=== PATIENT | male | born 1965 | race Asian ===

== ENCOUNTER 2020-03-06 10:22 | Emergency (ER) | payer OTHER | END 2020-03-06 11:17 | disposition home or self-care (01) | LOC: JVIRT 10:22 | DX: Z03.818 Encounter for observation for suspected exposure to other biological agents ruled out (principal) | CPT/HCPCS: C9803; G2012-GT; Q3014-GT; U0003 ==

== ENCOUNTER 2020-03-26 13:10 | Emergency (ER) | payer OTHER | END 2020-03-26 14:05 | disposition home or self-care (01) | LOC: JVIRT 13:10 | DX: Z03.818 Encounter for observation for suspected exposure to other biological agents ruled out (principal) | CPT/HCPCS: C9803; Q3014-GT; U0003 ==

== ENCOUNTER 2021-02-04 17:39 | Emergency (ER) | payer OTHER ==
[2021-02-04 19:31] VITALS: BP 159/94; PULSE 74; TEMP 98.1; BMI 21.7
== END 2021-02-04 20:58 | disposition home or self-care (01) ==
LOC: JER 17:39
DX: Z11.52 Encounter for screening for COVID-19 (principal)
CPT/HCPCS: 99283-25; C9803; U0003; U0005

== ENCOUNTER 2024-12-12 07:42 | Day surgery (SDC) | payer OTHER ==
[2024-12-09 14:59] VITALS: BMI 21.5
[2024-12-12] MEDS ORDERED: LIDOCAINE HCL 1%, 10 MG/ML (20ML VIAL) ONE (08:32)
[2024-12-12] MEDS ORDERED: BUPIVACAINE HCL/EPINEPHRINE/PF 30 ML VIAL IJ ONE (08:32)
[2024-12-12] MEDS ORDERED: LIDOCAINE 1%/EPI 1:100000 (20 ML MULTI DOSE VIAL) ONE (08:33)
[2024-12-12] MEDS ORDERED: BUPIVACAINE HCL/PF 2.5 MG/ML - 30 ML VIAL IJ ONE (08:33)
[2024-12-12] MEDS ORDERED: ROPIVACAINE HCL/PF 100 MG/20 ML VIAL ONE (09:30)
[2024-12-12] MEDS ORDERED: DEXAMETHASONE SOD PHOSPHATE 10 MG/1 ML VIAL ONE (09:30)
[2024-12-12] MEDS ORDERED: PROPOFOL 20 ML ONE ×5 (09:34→13:29)
[2024-12-12] MEDS ORDERED: MIDAZOLAM HCL 2 MG/2 ML SINGLE DOSE VIAL ONE ×2 (09:34→09:39)
[2024-12-12] MEDS ORDERED: LIDOCAINE HCL/PF 2% SDV 5ML VIAL ONE (09:35)
[2024-12-12] MEDS ORDERED: FENTANYL CITRATE/PF 50 MCG/ML VIAL ONE (09:39)
[2024-12-12] MEDS ORDERED: ONDANSETRON 4 MG/2 ML VIAL ONE (13:00)
[2024-12-12] MEDS ORDERED: ACETAMINOPHEN INJECTION 100 ML ONE (13:01)
[2024-12-12] MEDS ORDERED: ONDANSETRON 4 MG/2 ML VIAL IVPUSH PRN (14:08)
[2024-12-12] MEDS ORDERED: PROMETHAZINE HCL 25 MG/1 ML VIAL IVPB PRN (14:08)
[2024-12-12] MEDS ORDERED: LACTATED RINGERS SOLUTION 1,000 ML IV SCH (14:15)
[2024-12-12 15:28] VITALS: PULSE 74; RESP 16; TEMP 97.6
[2024-12-12 16:08] VITALS: BP 115/78
== END 2024-12-12 16:05 | disposition home or self-care (01) ==
LOC: FASU 07:42
PROVIDERS: ATTEND Orthopaedic Surgery Sports Medicine
PROC: 0PSB04Z Reposition Left Clavicle with Internal Fixation Device, Open Approach (ICD-10-PCS; 2024-12-12)
PROC: 0PSB04Z Reposition Left Clavicle with Internal Fixation Device, Open Approach (ICD-10-PCS; principal; 2024-12-12 10:39)
DX: S42.025K Nondisplaced fracture of shaft of left clavicle, subsequent encounter for fracture with nonunion (principal); X58.XXXD Exposure to other specified factors, subsequent encounter; Y92.9 Unspecified place or not applicable; Y93.9 Activity, unspecified
CPT/HCPCS: 23515; C1713; 73000-TC-LT-FY; 82962; 87070; 87205; 88300-TC; 94760; J1100